=== PATIENT | female | born 1950 | race Caucasian/White ===

== ENCOUNTER 2021-07-23 05:27 | Day surgery (SDC) | payer MEDICARE, BC ==
[2021-07-19 11:23] LABS: BASOPHILS % (AUTO) 0.3 % (0-1); EOSINOPHILS # (AUTO) 0.1 X10'3 (0-0.9); EOSINOPHILS % (AUTO) 1.3 % (0-6); LYMPHOCYTES # (AUTO) 1.2 X10'3 (1.1-4.8); LYMPHOCYTES % (AUTO) 19.7 % (21-51); MEAN CORPUSCULAR HEMOGLOBIN 31.4 PG (27.0-31.0); MEAN CORPUSCULAR HGB CONC 33.3 g/dL (33.0-36.5); MEAN CORPUSCULAR VOLUME 94.2 FL (78-98); MONOCYTES # (AUTO) 0.6 X10'3 (0-0.9); MONOCYTES % (AUTO) 10.2 % (2-12); NEUTROPHILS # (AUTO) 4.3 X10'3 (1.8-7.7); NEUTROPHILS % (AUTO) 68.5 % (42-75); PRE OP HEMATOCRIT 41.5 % (35.0-45.0); PRE OP HEMOGLOBIN 13.8 g/dL (12.0-16.0); PRE OP PLATELET COUNT 218 X10'3 (140-440); RED CELL DISTRIBUTION WIDTH 13.8 % (11.5-14.5)
[2021-07-19 11:55] LABS: ALBUMIN 3.8 G/DL (3.4-5.0); ALBUMIN/GLOBULIN RATIO 1.1 (1.1-1.5); ALKALINE PHOSPHATASE 77 IU/L (46-116); BLOOD UREA NITROGEN 14 MG/DL (7-18); BUN/CREATININE RATIO 19.7 (6.6-38.0); CALCIUM 8.9 MG/DL (8.5-10.1); CHLORIDE 107 MMOL/L (99-107); CREATININE 0.71 MG/DL (0.40-0.90); PRE OP ALT 28 U/L (30-65); PRE OP ANION GAP 10 (8-16); PRE OP AST 25 U/L (10-37); PRE OP BILIRUB, TOTAL 0.5 MG/DL (0.0-1.0); PRE OP GLUCOSE 113 MG/DL (70-104); PRE OP POTASSIUM 3.9 MMOL/L (3.4-5.1); PRE OP SODIUM 146 MMOL/L (135-145); TOTAL CARBON DIOXIDE 28.7 MMOL/L (24-32); TOTAL PROTEIN 7.4 G/DL (6.4-8.2); eGFR 81 ML/MIN
[2021-07-23] VITALS (10 sets, daily range): BP systolic 105–146; BP diastolic 57–82
[~2021-07-23] VITALS: Ht 149.9 cm; Wt 51.0 kg
[~2021-07-23 05:27] MED LIST: NO HOME MEDS; ringers solution, lacted 1,000 ML IV SCH
[2021-07-23] MEDS ORDERED: famotidine 20mg tablet PO ONE (05:30)
[2021-07-23] MEDS ORDERED: clindamycin 600mg/D5W 50ml 50 ML IV ONE (06:00)
[2021-07-23] MEDS ORDERED: BUPIVAcaine/PF 2.5mg/ml (0.25%) 10ml vial ONE (06:45)
[2021-07-23] MEDS ORDERED: fentaNYL/PF 50MCG/1 ML 2ML syringe ONE (07:25)
[2021-07-23] MEDS ORDERED: midazolam 1 mg/ML 2ml injection ONE (07:37)
[2021-07-23] MEDS ORDERED: propofol inj 20 ML IV ONE (07:46)
[2021-07-23] MEDS ORDERED: LIDOcaine 0.5% (5mg/ml) 50ml vial ONE (07:46)
[2021-07-23] MEDS ORDERED: morphine 2 MG/ML inj. syringe IV PRN (07:55)
[2021-07-23] MEDS ORDERED: morphine 4 MG/ML inj SYRINge IV PRN (07:55)
[2021-07-23] MEDS ORDERED: acetaminophen 1,000mg/100ml IV 100 ML IV PRN (07:55)
[2021-07-23] MEDS ORDERED: proCHLORperazine 10 MG/2 ml inj IV PRN (07:55)
[2021-07-23] MEDS ORDERED: meperidine/PF 25mg/ml syringe IV PRN ×3 (07:55)
[2021-07-23] MEDS ORDERED: ringers solution, lacted 1,000 ML IV SCH (07:55)
[2021-07-23] MEDS ORDERED: labetalol 20mg/4ml (5mg/ml) syringe IV PRN (07:55)
[2021-07-23] MEDS ORDERED: ondansetron/PF 4mg/2ml inj IV PRN (07:55)
[2021-07-23] MEDS ORDERED: hydrALAZINE 20mg/ml inj. IV PRN (07:55)
--- NOTE | 2021-07-23 09:54 | NUR ---
ALL DISCHARGE CRITERIA HAS BEEN MET. VSS, PAIN AT A TOLERABLE LEVEL, VOIDING AND ABLE TO SAFELY AMBULATE AND TRANSFER SELF. IV TAKEN OUT WITHOUT ANY COMPLICATIONS. ALL DISCHARGE INSTRUCTIONS COVERED WITH PATIENT AND ALL QUESTIONS ANSWERED. PATIENT TAKEN OUT VIA WHEELCHAIR TO PERSONAL VEHICLE WHERE FAMILY/FRIEND DROVE PATIENT HOME. Addendum: 07/23/21 at 1011 by Barber Allison RN, RN Amended: Links added.
== END 2021-07-23 09:54 | disposition home or self-care (01) ==
LOC: PAS 05:27
PROVIDERS: ATTEND Orthopaedic Surgery Hand Surgery
DX: S62.615P Displaced fracture of proximal phalanx of left ring finger, subsequent encounter for fracture with malunion (principal); Z72.89 Other problems related to lifestyle; Z88.0 Allergy status to penicillin; Z79.899 Other long term (current) drug therapy; Z98.890 Other specified postprocedural states; Z20.822 Contact with and (suspected) exposure to COVID-19; Z82.49 Family history of ischemic heart disease and other diseases of the circulatory system; Z81.8 Family history of other mental and behavioral disorders; X58.XXXD Exposure to other specified factors, subsequent encounter
CPT/HCPCS: 26735; 36415; 80053; 82948; 85025; A6222; C1713; J2001; J2250; J2704; J3010; J3490; J7120; U0003; U0005; Z7506; Z7508; Z7512; A4215; A4618; A6449; A7000

== ENCOUNTER 2022-08-15 13:57 | Day surgery (SDC) | payer MEDICARE, BC ==
[2022-08-11 10:01] LABS: BASOPHILS % (AUTO) 0.4 % (0-1); EOSINOPHILS # (AUTO) 0.1 X10'3 (0-0.9); EOSINOPHILS % (AUTO) 1.2 % (0-6); HEMATOCRIT 39.8 % (35.0-45.0); HEMOGLOBIN 13.3 g/dl (12.0-16.0); LYMPHOCYTES # (AUTO) 1.3 X10'3 (1.1-4.8); LYMPHOCYTES % (AUTO) 18.7 % (21-51); MEAN CORPUSCULAR HEMOGLOBIN 32.1 PG (27.0-31.0); MEAN CORPUSCULAR HGB CONC 33.5 g/dL (33.0-36.5); MEAN PLATELET VOLUME 9.1 FL (7.4-10.4); MONOCYTES # (AUTO) 0.6 X10'3 (0-0.9); MONOCYTES % (AUTO) 9.1 % (2-12); NEUTROPHILS # (AUTO) 4.8 X10'3 (1.8-7.7); NEUTROPHILS % (AUTO) 70.6 % (42-75); PLATELET COUNT 214 X10'3 (140-440); RED BLOOD COUNT 4.15 X10'6 (4.20-5.60); WHITE BLOOD COUNT 6.8 X10'3 (4.5-11.0)
[2022-08-11 10:23] LABS: ALBUMIN 3.7 G/DL (3.4-5.0); ANION GAP 6 (8-16); BLOOD UREA NITROGEN 18 MG/DL (7-18); BUN/CREATININE RATIO 26.1 (6.6-38.0); CALCIUM 9.2 MG/DL (8.5-10.1); CHLORIDE 104 MMOL/L (99-107); CHOL/HDL RATIO 2.5 (0.00-4.99); CHOLESTEROL 175 MG/DL (0-200); CREATININE 0.69 MG/DL (0.40-0.90); GLUCOSE 95 MG/DL (70-104); HDL CHOLESTEROL 69 MG/DL (35-60); LDL CHOLESTEROL 92 MG/DL (50-100); POTASSIUM 3.6 MMOL/L (3.5-5.1); SODIUM 141 MMOL/L (135-145); TOTAL CARBON DIOXIDE 31.5 MMOL/L (24-32); TRIGLYCERIDES 59 MG/DL (20-135); eGFR 83 ML/MIN
[2022-08-11 10:37] LABS: APTT 31 SECONDS (22-32)
[2022-08-15] VITALS (8 sets, daily range): BP systolic 108–144; BP diastolic 46–66
[~2022-08-15] VITALS: Ht 149.9 cm; Wt 49.2 kg
[~2022-08-15 13:57] MED LIST changes: -ringers solution, lacted 1,000 ML IV SCH
[2022-08-15] MEDS ORDERED: diphenhydrAMINE 25mg capsule PO PRN (14:25)
[2022-08-15] MEDS ORDERED: normal saline 1,000 ML IV SCH (14:25)
[2022-08-15] MEDS ORDERED: LORazepam 0.5 MG tablet PO PRN (14:25)
[2022-08-15] MEDS ORDERED: CHOL400T57 PO (14:28)
[2022-08-15] MEDS ORDERED: ASCO500C17 PO (14:28)
[2022-08-15] MEDS ORDERED: verapamil 2.5 mg/ml inj IV ONE (16:05)
[2022-08-15] MEDS ORDERED: nitroGLYCERIN-Tridil 50MG/D5W 250 ML IV ONE (16:05)
[2022-08-15] MEDS ORDERED: midazolam 1 mg/ML 2ml injection ONE (16:06)
[2022-08-15] MEDS ORDERED: heparin 1,000unit/ml 10ml vial 10 ML ONE (16:06)
[2022-08-15] MEDS ORDERED: iohexol 350MG/ML 100ml bottle IV ONE (16:06)
[2022-08-15] MEDS ORDERED: fentaNYL/PF 50MCG/1 ML 2ML syringe ONE (16:06)
[2022-08-15] MEDS ORDERED: LIDOcaine 1% 30ml preserv. free vial ONE (16:06)
[2022-08-16 06:07] LABS: ISTAT Hct MIX 36 %PCV (35-45); ISTAT O2 SATURATION MIX VENOUS 66 % (60-80); ISTAT SOURCE BLNK
[2022-08-16 06:13] LABS: ISTAT Hct MIX 35 %PCV (35-45); ISTAT O2 SATURATION MIX VENOUS 90 % (60-80); ISTAT SOURCE BLNK
== END 2022-08-15 19:15 | disposition home or self-care (01) ==
LOC: SSTAY O 13:57
PROVIDERS: ATTEND Student in an Organized Health Care Education/Training Program
DX: I34.0 Nonrheumatic mitral (valve) insufficiency (principal); Z79.899 Other long term (current) drug therapy; Z88.0 Allergy status to penicillin; Z79.01 Long term (current) use of anticoagulants; Z83.3 Family history of diabetes mellitus
CPT/HCPCS: 36415; 80048; 80061; 82803; 85014; 85025; 85610; 85730; 93005; 93460; 99152; C1751; C1760; C1769; C1894; J1644; J2250; J3010; J3490; J7030; Q0163; Q9967; A6258; A6402